=== PATIENT | female | born 1955 | race African-American/Black ===

== ENCOUNTER 2018-09-16 12:39 | Observation (INO) ==
[2018-09-16 14:48] LABS: Basophils # 0.1 10*3/uL (0.0-0.2); Basophils % 0.5 % (0.0-0.8); Eosinophils # 0.2 10*3/uL (0.0-0.87); Eosinophils % 1.6 % (0.00-10.9); Hematocrit 28.7 VOL% (35.7-47.0); Hemoglobin 8.6 GM/DL (12.0-16.0); Immature Granulocytes % 0.7 %; Immature Granulocytes Absolute 0.07 #; Lymphocytes # 0.9 10*3/uL (1.4-4.0); Lymphocytes % 9.5 % (21.3-54.2); Mean Corpuscular Volume 92.6 FL (87-102); Mean Platelet Volume 9.8 FL (9.6-12.0); Monocytes % 5.7 % (1.7-12.7); Platelet Count 233 T/CUMM (130-400); Red Cell Distribution Width 21.9 % (9.3-17.3); White Blood Count 9.5 T/CUMM (4-12)
[2018-09-16 15:04] LABS: Calcium 8.8 MG/DL (8.5-10.1); Osmolality,Calculated 313.4 MOS/KG (273-304)
[2018-09-16] MEDS ORDERED: ONDANSETRON 4 MG/2 ML VIAL IV PRN (16:26)
[2018-09-16] MEDS ORDERED: LACTULOSE 20 GM/30 ML UDCUP PO PRN (16:26)
[2018-09-16] MEDS ORDERED: SEVELAMER CARBONATE 800 MG TABLET PO SCH (17:00)
[2018-09-16 17:05] LABS: Thyroid Stimulating Hormone 1.57 uIU/ml (0.358-3.74)
[2018-09-16] MEDS: ISOSORBIDE DINITRATE 10 MG TABLET PO SCH (23:35)
[2018-09-16] MEDS: ZALEPLON 5 MG CAPSULE PO PRN (23:35)
[2018-09-16] MEDS: CARVEDILOL 12.5 MG TABLET PO SCH (23:35)
[2018-09-16] MEDS: hydrALAZINE 25 MG TABLET PO SCH (23:35)
[2018-09-16] MEDS: SEVELAMER CARBONATE 800 MG TABLET PO SCH (23:36)
[2018-09-17 05:01] LABS: Basophils # 0.1 10*3/uL (0.0-0.2); Basophils % 0.8 % (0.0-0.8); Eosinophils # 0.2 10*3/uL (0.0-0.87); Eosinophils % 2.7 % (0.00-10.9); Hematocrit 27.2 VOL% (35.7-47.0); Hemoglobin 8.2 GM/DL (12.0-16.0); Immature Granulocytes % 0.6 %; Immature Granulocytes Absolute 0.04 #; Lymphocytes # 0.8 10*3/uL (1.4-4.0); Lymphocytes % 10.9 % (21.3-54.2); Mean Corpuscular HGB Conc 30.1 GM/DL (32-36); Mean Corpuscular Volume 91.3 FL (87-102); Monocytes % 7.6 % (1.7-12.7); Neutrophils % 77.4 % (38.7-73.9); Platelet Count 203 T/CUMM (130-400); Red Blood Count 2.98 MC/CUMM (3.8-5.5); Red Cell Distribution Width 21.4 % (9.3-17.3); White Blood Count 7.1 T/CUMM (4-12)
[2018-09-17 05:20] LABS: Osmolality,Calculated 308.3 MOS/KG (273-304); Risk Ratio 2.01; VLDL CHOLESTEROL 9.2 MG/DL
[2018-09-17] MEDS: KETOROLAC 0.5% OPH SOLN 5 ML BOTTLE BOTH EYES SCH ×5 (09:24→20:23)
[2018-09-17] MEDS: DORZOLAMIDE/TIMOLOL OPH SOLN 10 ML BOTTLE BOTH EYES SCH ×3 (09:24→20:24)
[2018-09-17] MEDS: BRIMONIDINE 0.1% OPH SOLN 5 ML BOTTLE BOTH EYES SCH ×3 (09:24→20:23)
[2018-09-17] MEDS: SEVELAMER CARBONATE 800 MG TABLET PO SCH ×4 (09:27→16:49)
[2018-09-17] MEDS: MULTIVITAMIN (CENTRUM) TABLET PO SCH (09:28)
[2018-09-17] MEDS: amLODIPine 10 MG TABLET PO SCH (09:28)
[2018-09-17] MEDS: PANTOPRAZOLE 40 MG TABLET PO SCH (09:28)
[2018-09-17] MEDS: hydrALAZINE 25 MG TABLET PO SCH ×3 (09:28→20:20)
[2018-09-17] MEDS: ATORVASTATIN 10 MG TABLET PO SCH (09:28)
[2018-09-17] MEDS: LOSARTAN 50 MG TABLET PO SCH (09:28)
[2018-09-17] MEDS: CARVEDILOL 12.5 MG TABLET PO SCH ×2 (09:28→16:50)
[2018-09-17] MEDS: FLUTICASONE 50 MCG NASAL SPRAY 16 GM BOTTLE BOTH NARES SCH (09:28)
[2018-09-17] MEDS: ISOSORBIDE DINITRATE 10 MG TABLET PO SCH ×3 (09:28→20:20)
[2018-09-17] MEDS ORDERED: HEPARIN 1,000 UNIT/1 ML VIAL ONE (14:54)
[2018-09-17] MEDS: ACETAMINOPHEN 325 MG TABLET PO PRN (16:07)
[2018-09-17] MEDS: ZALEPLON 5 MG CAPSULE PO PRN (20:22)
[2018-09-18 05:44] LABS: Basophils # 0.1 10*3/uL (0.0-0.2); Basophils % 0.7 % (0.0-0.8); Eosinophils # 0.2 10*3/uL (0.0-0.87); Eosinophils % 2.7 % (0.00-10.9); Hemoglobin 8.6 GM/DL (12.0-16.0); Immature Granulocytes % 0.4 %; Immature Granulocytes Absolute 0.03 #; Lymphocytes # 0.7 10*3/uL (1.4-4.0); Mean Corpuscular HGB Conc 30.7 GM/DL (32-36); Mean Corpuscular Volume 90.9 FL (87-102); Mean Platelet Volume 9.6 FL (9.6-12.0); Monocytes % 7.5 % (1.7-12.7); Neutrophils % 78.7 % (38.7-73.9); Platelet Count 199 T/CUMM (130-400); Red Blood Count 3.08 MC/CUMM (3.8-5.5); Red Cell Distribution Width 21.3 % (9.3-17.3); White Blood Count 7.4 T/CUMM (4-12)
[2018-09-18 06:14] LABS: Calcium 8.8 MG/DL (8.5-10.1); Osmolality,Calculated 317.3 MOS/KG (273-304)
[2018-09-18] MEDS: DORZOLAMIDE/TIMOLOL OPH SOLN 10 ML BOTTLE BOTH EYES SCH (08:06)
[2018-09-18] MEDS: CARVEDILOL 12.5 MG TABLET PO SCH (08:06)
[2018-09-18] MEDS: SEVELAMER CARBONATE 800 MG TABLET PO SCH ×2 (08:06→14:40)
[2018-09-18] MEDS: hydrALAZINE 25 MG TABLET PO SCH ×2 (08:06→14:40)
[2018-09-18] MEDS: BRIMONIDINE 0.1% OPH SOLN 5 ML BOTTLE BOTH EYES SCH (08:06)
[2018-09-18] MEDS: KETOROLAC 0.5% OPH SOLN 5 ML BOTTLE BOTH EYES SCH ×2 (08:06→14:40)
[2018-09-18] MEDS: ISOSORBIDE DINITRATE 10 MG TABLET PO SCH ×2 (08:07→14:40)
[2018-09-18] MEDS ORDERED: ONDANSETRON 4 MG/2 ML VIAL ONE (08:13)
[2018-09-18 14:32] VITALS: BP 138/65
[2018-09-18] MEDS: PANTOPRAZOLE 40 MG TABLET PO SCH (14:40)
[2018-09-18] MEDS: LOSARTAN 50 MG TABLET PO SCH (14:40)
[2018-09-18] MEDS: amLODIPine 10 MG TABLET PO SCH (14:40)
[2018-09-18] MEDS: ATORVASTATIN 10 MG TABLET PO SCH (14:40)
[2018-09-18] MEDS: FLUTICASONE 50 MCG NASAL SPRAY 16 GM BOTTLE BOTH NARES SCH (14:43)
[2018-09-18] MEDS: ACETAMINOPHEN 325 MG TABLET PO PRN (14:44)
[2018-09-18] MEDS: MULTIVITAMIN (CENTRUM) TABLET PO SCH (14:55)
== END 2018-09-18 16:20 | disposition home or self-care (01) ==
LOC: N.ED 12:39 → N.EDINP 12:39 → N.5E 23:08
PROVIDERS: ADMIT Internal Medicine; ATTEND Internal Medicine

== ENCOUNTER 2021-01-16 19:07 | Observation (INO) ==
[2021-01-16 20:30] LABS: Basophils # 0.1 10*3/uL (0.0-0.2); Basophils % 0.9 % (0.0-0.8); Eosinophils # 0.1 10*3/uL (0.0-0.87); Hematocrit 43.4 VOL% (35.7-47.0); Hemoglobin 13.1 GM/DL (12.0-16.0); Immature Granulocytes % 4.6 %; Immature Granulocytes Absolute 0.31 #; Lymphocytes # 0.6 10*3/uL (1.4-4.0); Lymphocytes % 8.7 % (21.3-54.2); Mean Corpuscular HGB Conc 30.2 GM/DL (32-36); Mean Corpuscular Volume 95.8 FL (87-102); Mean Platelet Volume 10.4 FL (9.6-12.0); Monocytes % 13.4 % (1.7-12.7); Neutrophils % 71.4 % (38.7-73.9); Platelet Count 259 T/CUMM (130-400); Red Blood Count 4.53 MC/CUMM (3.8-5.5); Red Cell Distribution Width 14.7 % (9.3-17.3); White Blood Count 6.8 T/CUMM (4-12)
[2021-01-16 20:45] LABS: Alanine Aminotransferase 25 U/L (13-56); Albumin 3.9 G/DL (3.4-5.0); Alkaline Phosphatase 172 U/L (45-117); Aspartate Amino Transferase 17 U/L (0-37); Bilirubin,Total < 0.39 MG/DL (0.20-1.00); Blood Urea Nitrogen 31 MG/DL (7-18); Carbon Dioxide 25 MMOL/L (21-32); Estimated Glom Filtration Rate 61 ML/MIN; Glucose 116 MG/DL (74-106); Osmolality,Calculated 288.3 MOS/KG (273-304); Potassium 3.9 MMOL/L (3.5-5.1); Sodium 141 MMOL/L (136-145); Thyroid Stimulating Hormone 0.935 uIU/ml (0.358-3.74); Total Protein 6.9 G/DL (6.4-8.2)
[2021-01-16 20:49] LABS: Barbiturates Screen,Urine Negative (Negative); Benzodiazepines Screen,Urine Negative (Negative); Cannabinoid Screen,Urine Negative (Negative); Opiate Screen,Urine Negative (Negative); Phencyclidine Screen,Urine Negative (Negative)
[2021-01-16] MEDS ORDERED: MAGNESIUM SULF RIDER 1 GM/100 ML PREMIX IV STA (21:01)
[2021-01-16] MEDS ORDERED: GLUCAGON 1 MG VIAL IM PRN (22:06)
[2021-01-16] MEDS ORDERED: DEXTROSE 50% 25 GM/50 ML VIAL IV PRN (22:06)
[2021-01-16] MEDS ORDERED: ALUMINUM/MAGNES/SIMETH MAX STR 30 ML UDCUP PO PRN (22:07)
[2021-01-16] MEDS ORDERED: hydrALAZINE 20 MG/1 ML VIAL IV PRN (22:07)
[2021-01-16] MEDS ORDERED: DOCUSATE SODIUM 100 MG CAPSULE PO PRN (22:07)
[2021-01-16] MEDS ORDERED: POTASSIUM CHLORIDE RIDER 10 MEQ/100 ML PREMIX IV PRN (22:07)
[2021-01-16] MEDS ORDERED: ONDANSETRON 4 MG/2 ML VIAL IV PRN (22:07)
[2021-01-16] MEDS ORDERED: ACETAMINOPHEN 325 MG TABLET PO PRN (22:07)
[2021-01-16] MEDS ORDERED: MAGNESIUM SULF RIDER 4 GM/100 ML PREMIX IV PRN (22:07)
[2021-01-16] MEDS ORDERED: ASPIRIN CHEW 81 MG TABLET PO ONE (22:07)
[2021-01-16] MEDS ORDERED: SODIUM CHLORIDE 0.9% 1,000 ML IV SCH (22:30)
[2021-01-17 02:06] LABS: PT Patient Result 11.1 SECS (10.5-12.0); Partial Thromboplastin Time 26.8 SECS (23.8-32.1)
[2021-01-17 02:15] LABS: Calcium 9.5 MG/DL (8.5-10.1); Osmolality,Calculated 286.3 MOS/KG (273-304); Potassium 4.1 MMOL/L (3.5-5.1); Risk Ratio 1.98; VLDL Cholesterol 20.6 MG/DL
[2021-01-17 02:16] LABS: Basophils % 0.7 % (0.0-0.8); Eosinophils # 0.1 10*3/uL (0.0-0.87); Eosinophils % 1.3 % (0.00-10.9); Hematocrit 44.6 VOL% (35.7-47.0); Hemoglobin 13.3 GM/DL (12.0-16.0); Immature Granulocytes % 5.4 %; Lymphocytes # 0.6 10*3/uL (1.4-4.0); Lymphocytes % 10.1 % (21.3-54.2); Mean Corpuscular HGB Conc 29.8 GM/DL (32-36); Monocytes % 12.6 % (1.7-12.7); Neutrophils % 69.9 % (38.7-73.9); Platelet Count 235 T/CUMM (130-400); Red Cell Distribution Width 14.7 % (9.3-17.3); White Blood Count 5.6 T/CUMM (4-12)
[2021-01-17 03:18] LABS: Band Neutrophils 1 % (0-10); Eosinophils 1 % (0-10); Lymphocytes 11 % (20-55); Nucleated Red Blood Cells 1 (0-5); Platelet Estimate Normal; Segmented Neutrophils 79 % (50-85); Total Cells Counted 100
[2021-01-17 03:19] LABS: Ovalocytes Few; Stomatocytes Slight
[2021-01-17 03:20] LABS: Polychromasia Slight; Schistocytes Few
[2021-01-17] MEDS ORDERED: ZALEPLON 5 MG CAPSULE PO PRN (05:08)
[2021-01-17] MEDS ORDERED: amLODIPine 10 MG TABLET PO SCH (09:00)
[2021-01-17] MEDS ORDERED: ASPIRIN EC 325 MG TABLET PO SCH (09:00)
[2021-01-17] MEDS ORDERED: KETOROLAC 0.5% OPH SOLN 5 ML BOTTLE BOTH EYES SCH (09:00)
[2021-01-17] MEDS ORDERED: MAGNESIUM SULF RIDER 2 GM/50 ML PREMIX IV PRN (09:00)
[2021-01-17] MEDS ORDERED: MAGNESIUM OXIDE 400 MG TABLET PO SCH (09:00)
[2021-01-17] MEDS ORDERED: ENOXAPARIN 40 MG/0.4 ML SYRINGE SUBCUT SCH (09:00)
[2021-01-17] MEDS ORDERED: carvediloL 12.5 MG TABLET PO SCH (09:00)
[2021-01-17] MEDS ORDERED: MYCOPHENOLATE MOFETIL 250 MG CAPSULE PO SCH (09:00)
[2021-01-17] MEDS ORDERED: PANTOPRAZOLE 40 MG TABLET PO SCH (09:00)
[2021-01-17] MEDS ORDERED: TACROLIMUS 0.5 MG CAPSULE PO SCH ×2 (09:00→19:00)
[2021-01-17] MEDS ORDERED: POTASSIUM CHLORIDE RIDER 10 MEQ/100 ML PREMIX IV PRN (09:00)
[2021-01-17] MEDS ORDERED: predniSONE 5 MG TABLET PO SCH (09:00)
[2021-01-17 11:14] VITALS: BP 140/73
[2021-01-17] MEDS ORDERED: ATORVASTATIN 10 MG TABLET PO SCH (21:00)
[2021-01-17] MEDS ORDERED: APIXABAN 5 MG TABLET PO SCH (21:00)
[2021-01-18] MEDS ORDERED: TACROLIMUS 0.5 MG CAPSULE PO SCH (09:00)
[2021-01-18] MEDS ORDERED: ASPIRIN CHEW 81 MG TABLET PO SCH (09:00)
== END 2021-01-17 13:40 | disposition home or self-care (01) ==
LOC: N.EDINP 19:07 → N.ED 19:07 → SUATTDRO 22:06 → N.EDINP 01-17 01:04 → N.TELES 01-17 01:06
PROVIDERS: ADMIT Internal Medicine; ATTEND Internal Medicine

== ENCOUNTER 2022-04-02 07:40 | Inpatient (IN) ==
[2022-04-02] MEDS ORDERED: ACETAMINOPHEN 500 MG TABLET PO STA (08:03)
[2022-04-02 08:12] LABS: Hematocrit 26.3 VOL% (35.7-47.0); Hemoglobin 8.3 GM/DL (12.0-16.0); Lymphocytes # 0.1 10*3/uL (1.4-4.0); Lymphocytes % 55.6 % (21.3-54.2); Mean Corpuscular HGB Conc 31.6 GM/DL (32-36); Mean Corpuscular Volume 89.8 FL (87-102); Monocytes % 33.3 % (1.7-12.7); NRBC # 0.02 10*3/uL; Neutrophils % 11.1 % (38.7-73.9); Red Blood Count 2.93 MC/CUMM (3.8-5.5); Red Cell Distribution Width 17.4 % (9.3-17.3)
[2022-04-02 08:17] LABS: Platelet Count 27 T/CUMM (130-400); White Blood Count 0.1 T/CUMM (4-12)
[2022-04-02 08:25] LABS: Albumin 2.9 G/DL (3.4-5.0); Bilirubin,Total 0.7 MG/DL (0.20-1.00); Calcium 8.8 MG/DL (8.5-10.1); Potassium 3.9 MMOL/L (3.5-5.1); Total Protein 6.7 G/DL (6.4-8.2)
[2022-04-02 08:40] LABS: Lymphocytes 40 % (20-55)
[2022-04-02 08:41] LABS: Hypochromia Slight; Microcytosis Slight; Platelet Estimate Decreased; Total Cells Counted 100
[2022-04-02] MEDS ORDERED: VANCOMYCIN INJ 1,000 MG in SODIUM CHLORIDE 0.9% 250 ML IV STA (11:12)
[2022-04-02] MEDS ORDERED: PIPERACILLIN/TAZOBACTAM 3,375 MG in SODIUM CHLORIDE 0.9% 100 ML IV STA (11:13)
[2022-04-02] MEDS ORDERED: SODIUM CHLORIDE 0.9% 1,000 ML IV STA (11:19)
[2022-04-02] MEDS ORDERED: hydrALAZINE 20 MG/1 ML VIAL IV PRN (12:07)
[2022-04-02] MEDS ORDERED: ALBUTEROL/IPRATROPIUM 3 ML NEB RESP TX PRN (12:07)
[2022-04-02] MEDS ORDERED: guaiFENesin/DM ER 600-30 MG TABLET PO PRN (12:07)
[2022-04-02] MEDS ORDERED: ACETAMINOPHEN 325 MG TABLET PO PRN (12:07)
[2022-04-02] MEDS ORDERED: ONDANSETRON 4 MG/2 ML VIAL IV PRN (12:07)
[2022-04-02] MEDS ORDERED: DOCUSATE SODIUM 100 MG CAPSULE PO PRN (12:14)
[2022-04-02] MEDS ORDERED: PANTOPRAZOLE 40 MG TABLET PO SCH (12:30)
[2022-04-02] MEDS ORDERED: PIPERACILLIN/TAZOBACTAM 3,375 MG in SODIUM CHLORIDE 0.9% 100 ML IV SCH (14:30)
[2022-04-02 14:59] LABS: Hepatitis B Core IgM Quant 0.05 Index; Hepatitis B Surface Ag Quant < 0.10 Index; Hepatitis B Surface Ag Result Non-Reactive (NonReactive); Hepatitis C Virus Ab Quant < 0.02 Index; Hepatitis C Virus Ab Result Non-Reactive (NonReactive)
[2022-04-02] MEDS ORDERED: EPINEPHrine 1 MG/10 ML SYRINGE IV ONE (15:54)
[2022-04-02] MEDS ORDERED: SODIUM BICARBONATE 50 MEQ/50 ML SYRINGE IV ONE (15:55)
[2022-04-02] MEDS ORDERED: ATROPINE 1 MG/10 ML SYRINGE IV ONE (15:59)
[2022-04-02] MEDS ORDERED: CALCIUM CHLORIDE 1,000 MG/10 ML SYRINGE IV ONE (16:02)
[2022-04-02] MEDS ORDERED: EPINEPHrine 1 MG/ML VIAL ONE (16:19)
[2022-04-02] MEDS ORDERED: LACTATED RINGERS 1,000 ML IV ONE (16:32)
[2022-04-02] MEDS ORDERED: MIDAZOLAM 2 MG/2 ML VIAL ONE (16:34)
[2022-04-02] MEDS ORDERED: MIDAZOLAM 2 MG/2 ML VIAL IV ONE (16:35)
[2022-04-02 16:45] LABS: ABG Oxygen Saturation 98.5 % (95-100); ABG PCO2 40.9 MM HG (35-48); ABG PH 7.268 (7.35-7.45); ABG TCO2 16.8 MMOL/L (23-27)
[2022-04-02] MEDS: KETOROLAC 0.5% OPH SOLN 5 ML BOTTLE BOTH EYES SCH ×2 (17:00→21:49)
[2022-04-02] MEDS ORDERED: SODIUM BICARBONATE 50 MEQ/50 ML VIAL IV ONE (17:03)
[2022-04-02] MEDS: fentaNYL INJ 1,250 MCG in SODIUM CHLORIDE 0.9% 225 ML IV PRN (17:05)
[2022-04-02] MEDS: MIDAZOLAM DRIP 100 MG/100 ML PREMIX IV PRN (17:10)
[2022-04-02] MEDS: SODIUM CHLORIDE 0.9% 1,000 ML IV SCH (17:25)
[2022-04-02] MEDS ORDERED: LORazepam 2 MG/1 ML VIAL IV ONE ×2 (17:50→23:43)
[2022-04-02] MEDS ORDERED: LORazepam 2 MG/1 ML VIAL ONE (17:51)
[2022-04-02] MEDS ORDERED: [UNRECOGNIZED DRUG - OTHER] IV ONE (18:00)
[2022-04-02] MEDS ORDERED: FOSPHENYTOIN IV ONE (18:00)
[2022-04-02] MEDS ORDERED: SODIUM CHLORIDE IV ONE (18:00)
[2022-04-02 18:39] LABS: Protein,Urine 100 mg/dL (Negative); Urine Appearance Clear (Clear); Urine Color Straw (Yellow)
[2022-04-02 18:40] LABS: Bilirubin,Urine Negative (Negative); Blood, Urine Moderate mg/dL (Negative); Glucose,Urine (UA) Negative (Negative); Ketones,Urine Negative (Negative); Nitrite,Urine Negative (Negative); Urine Urobilinogen 0.2 eU/dL (<2.0)
[2022-04-02 18:46] LABS: RBC,Urine 7 /HPF (0-4)
[2022-04-02] MEDS ORDERED: CISATRACURIUM 10 MG/5 ML VIAL IV PRN (19:07)
[2022-04-02 19:23] LABS: High Sensitive Troponin I* 26.4 ng/L (0-54)
[2022-04-02 19:39] LABS: ABG Base Excess 0.6 MMOL/L (-2.5-2.5); ABG Oxygen Saturation 98.2 % (95-100); ABG PCO2 35.8 MM HG (35-48); ABG PH 7.441 (7.35-7.45); ABG TCO2 21.6 MMOL/L (23-27)
[2022-04-02 19:42] LABS: Hematocrit 21.9 VOL% (35.7-47.0); Hemoglobin 7.2 GM/DL (12.0-16.0); Mean Corpuscular HGB Conc 32.9 GM/DL (32-36); Mean Corpuscular Volume 87.6 FL (87-102); NRBC # 0.03 10*3/uL; Red Cell Distribution Width 17.1 % (9.3-17.3)
[2022-04-02 19:49] LABS: Lymphocytes % 37.5 % (21.3-54.2); Monocytes % 37.5 % (1.7-12.7)
[2022-04-02] MEDS: LINEZOLID INJ 600 MG/300 ML PREMIX IV SCH (19:49)
[2022-04-02 19:50] LABS: Platelet Count 23 T/CUMM (130-400); White Blood Count 0.1 T/CUMM (4-12)
[2022-04-02 19:58] LABS: INR 1.5; Partial Thromboplastin Time 41.4 SECS (23.7-32.9)
[2022-04-02] MEDS: FILGRASTIM-SNDZ 300 MCG/0.5 ML SYRINGE SUBCUT SCH (19:59)
[2022-04-02] MEDS: DORZOLAMIDE 2% OPH SOLN 10 ML BOTTLE BOTH EYES SCH ×2 (19:59→21:50)
[2022-04-02 20:00] LABS: Alanine Aminotransferase 215 U/L (13-56); Albumin 2.3 G/DL (3.4-5.0); Alkaline Phosphatase 214 U/L (45-117); Amylase 28 U/L (25-115); Aspartate Amino Transferase 258 U/L (0-37); Blood Urea Nitrogen 18 MG/DL (7-18); Calcium 8.7 MG/DL (8.5-10.1); Carbon Dioxide 25 MMOL/L (21-32); Chloride 107 MMOL/L (98-107); Glucose 183 MG/DL (74-106); Osmolality,Calculated 287.3 MOS/KG (273-304); Phosphorous 3.7 MG/DL (2.5-4.9); Potassium 3.6 MMOL/L (3.5-5.1); Sodium 141 MMOL/L (136-145); Total Protein 5.8 G/DL (6.4-8.2)
[2022-04-02] MEDS ORDERED: INSULIN REGULAR 100 UNIT/ML SUBCUT SCH (20:00)
[2022-04-02] MEDS: MEROPENEM 500 MG in SODIUM CHLORIDE 0.9% 100 ML IV SCH (20:16)
[2022-04-02] MEDS: HYDROCORTISONE 100 MG VIAL IV SCH (20:30)
[2022-04-02] MEDS ORDERED: MAGNESIUM SULF RIDER 2 GM/50 ML PREMIX IV ONE (20:33)
[2022-04-02 20:38] LABS: Anisocytosis 1+; Lymphocytes 65 % (20-55); Metamyelocytes 5 %; Myelocytes 5 %; Nucleated Red Blood Cells 3 /100 WBC (0-5); Platelet Estimate Decreased; Total Cells Counted 100
[2022-04-02] MEDS: LEVOFLOXACIN INJ 750 MG/150 ML PREMIX IV SCH (20:45)
[2022-04-02] MEDS ORDERED: carvediloL 3.125 MG TABLET PO SCH (21:00)
[2022-04-02] MEDS ORDERED: ATORVASTATIN 10 MG TABLET PO SCH (21:00)
[2022-04-02] MEDS: MAGNESIUM OXIDE 400 MG TABLET PO SCH (21:19)
[2022-04-02] MEDS: FLUTICASONE 50 MCG NASAL SPRAY 16 GM BOTTLE BOTH NARES SCH (21:45)
[2022-04-02] MEDS: TACROLIMUS 0.5 MG CAPSULE PO SCH (21:46)
[2022-04-02] MEDS: MICAFUNGIN 100 MG in SODIUM CHLORIDE 0.9% 100 ML IV SCH (22:22)
[2022-04-03] MEDS: INSULIN REGULAR 100 UNIT/ML IV SCH ×4 (00:04→12:36)
[2022-04-03] MEDS ORDERED: VANCOMYCIN INJ 1,500 MG in SODIUM CHLORIDE 0.9% 500 ML IV SCH (01:00)
[2022-04-03 01:44] LABS: ABG Base Excess -5.2 MMOL/L (-2.5-2.5); ABG HCO3 20.1 MMOL/L (20-26); ABG Oxygen Saturation 98.5 % (95-100); ABG PCO2 33.8 MM HG (35-48); ABG PH 7.369 (7.35-7.45); ABG TCO2 18.4 MMOL/L (23-27)
[2022-04-03 01:49] LABS: Hematocrit 22.9 VOL% (35.7-47.0); Hemoglobin 7.5 GM/DL (12.0-16.0); Lymphocytes % 27.3 % (21.3-54.2); Mean Corpuscular HGB Conc 32.8 GM/DL (32-36); Mean Corpuscular Volume 89.1 FL (87-102); Monocytes % 36.4 % (1.7-12.7); Neutrophils % 36.3 % (38.7-73.9); Red Blood Count 2.57 MC/CUMM (3.8-5.5); Red Cell Distribution Width 17.2 % (9.3-17.3)
[2022-04-03 01:55] LABS: Platelet Count 19 T/CUMM (130-400); White Blood Count 0.1 T/CUMM (4-12)
[2022-04-03 02:02] LABS: INR 1.7; PT Patient Result 18.5 SECS (10.1-12.1); Partial Thromboplastin Time 42.5 SECS (23.7-32.9)
[2022-04-03 02:07] LABS: Calcium 7.8 MG/DL (8.5-10.1); Osmolality,Calculated 290.4 MOS/KG (273-304); Potassium 2.9 MMOL/L (3.5-5.1)
[2022-04-03] MEDS: HYDROCORTISONE 100 MG VIAL IV SCH ×4 (02:07→20:35)
[2022-04-03] MEDS: SODIUM CHLORIDE 0.9% 1,000 ML IV SCH ×3 (02:09→17:16)
[2022-04-03] MEDS: POTASSIUM CHLORIDE RIDER 20 MEQ/100 ML PREMIX IV SCH ×2 (02:32→03:30)
[2022-04-03 02:36] LABS: Lymphocytes 60 % (20-55); Platelet Estimate Decreased; Total Cells Counted 100
[2022-04-03 02:37] LABS: Polychromasia Slight
[2022-04-03 02:38] LABS: Anisocytosis 1+
[2022-04-03] MEDS ORDERED: LORazepam 2 MG/1 ML VIAL IV ONE (03:31)
[2022-04-03] MEDS: MEROPENEM 500 MG in SODIUM CHLORIDE 0.9% 100 ML IV SCH ×3 (04:04→20:35)
[2022-04-03] MEDS: LINEZOLID INJ 600 MG/300 ML PREMIX IV SCH ×2 (05:21→18:25)
[2022-04-03] MEDS: fentaNYL INJ 1,250 MCG in SODIUM CHLORIDE 0.9% 225 ML IV PRN ×2 (05:47→20:42)
[2022-04-03] MEDS ORDERED: POTASSIUM CHLORIDE RIDER 20 MEQ/100 ML PREMIX IV ONE ×3 (05:53→19:20)
[2022-04-03 08:28] LABS: ABG Base Excess -5.3 MMOL/L (-2.5-2.5); ABG Oxygen Saturation 98.9 % (95-100); ABG PCO2 33.6 MM HG (35-48); ABG PH 7.368 (7.35-7.45); ABG TCO2 18.1 MMOL/L (23-27); Hematocrit 22.9 VOL% (35.7-47.0); Hemoglobin 7.5 GM/DL (12.0-16.0); Lymphocytes % 27.3 % (21.3-54.2); Mean Corpuscular HGB Conc 32.8 GM/DL (32-36); Mean Corpuscular Volume 88.8 FL (87-102); Monocytes % 36.4 % (1.7-12.7); NRBC # 0.02 10*3/uL; Neutrophils % 36.3 % (38.7-73.9); Red Blood Count 2.58 MC/CUMM (3.8-5.5); Red Cell Distribution Width 17.1 % (9.3-17.3)
[2022-04-03 08:34] LABS: White Blood Count 0.1 T/CUMM (4-12)
[2022-04-03 08:35] LABS: Platelet Count 23 T/CUMM (130-400)
[2022-04-03] MEDS: FLUTICASONE 50 MCG NASAL SPRAY 16 GM BOTTLE BOTH NARES SCH ×2 (08:44→21:08)
[2022-04-03 08:45] LABS: PT Patient Result 20.6 SECS (10.1-12.1)
[2022-04-03] MEDS: MAGNESIUM OXIDE 400 MG TABLET PO SCH ×2 (08:45→20:48)
[2022-04-03 08:48] LABS: Calcium 7.7 MG/DL (8.5-10.1); Osmolality,Calculated 292.5 MOS/KG (273-304); Potassium 3.8 MMOL/L (3.5-5.1)
[2022-04-03 08:59] LABS: Lymphocytes 60 % (20-55); Nucleated Red Blood Cells 1 /100 WBC (0-5); Platelet Estimate Decreased; Total Cells Counted 100
[2022-04-03 09:00] LABS: Hypochromia Slight; Microcytosis Slight
[2022-04-03] MEDS ORDERED: predniSONE 5 MG TABLET PO SCH (09:00)
[2022-04-03] MEDS ORDERED: AMIODARONE 200 MG TABLET PO SCH (09:00)
[2022-04-03] MEDS ORDERED: FLUCONAZOLE 200 MG TABLET PO SCH (09:00)
[2022-04-03] MEDS ORDERED: PANTOPRAZOLE 40 MG VIAL IV SCH (09:00)
[2022-04-03] MEDS ORDERED: amLODIPine 10 MG TABLET PO SCH (09:00)
[2022-04-03] MEDS: FILGRASTIM-SNDZ 300 MCG/0.5 ML SYRINGE SUBCUT SCH (09:50)
[2022-04-03] MEDS: TACROLIMUS 0.5 MG CAPSULE PO SCH (09:51)
[2022-04-03] MEDS: KETOROLAC 0.5% OPH SOLN 5 ML BOTTLE BOTH EYES SCH ×4 (09:52→20:52)
[2022-04-03] MEDS: DORZOLAMIDE 2% OPH SOLN 10 ML BOTTLE BOTH EYES SCH ×3 (09:53→20:53)
[2022-04-03] MEDS: ACYCLOVIR 200 MG CAPSULE PO SCH (10:40)
[2022-04-03] MEDS: CINACALCET 30 MG TABLET PO SCH (10:40)
[2022-04-03] MEDS ORDERED: MAGNESIUM SULF RIDER 1 GM/100 ML PREMIX IV ONE (11:00)
[2022-04-03] MEDS ORDERED: SODIUM CHLORIDE 0.9% 1,000 ML IV PRN (11:47)
[2022-04-03] MEDS ORDERED: PHENYTOIN 100 MG/2 ML VIAL IV SCH (13:00)
[2022-04-03] MEDS: PHENYTOIN INJ 100 MG in SODIUM CHLORIDE 0.9% 100 ML IV SCH ×2 (14:01→22:39)
[2022-04-03 14:19] LABS: Hematocrit 22.2 VOL% (35.7-47.0); Hemoglobin 7.2 GM/DL (12.0-16.0); Lymphocytes % 14.3 % (21.3-54.2); Mean Corpuscular HGB Conc 32.4 GM/DL (32-36); Mean Corpuscular Volume 88.1 FL (87-102); Monocytes # 0.1 10*3/uL (0.11-0.8); Monocytes % 35.7 % (1.7-12.7); NRBC # 0.02 10*3/uL; Red Blood Count 2.52 MC/CUMM (3.8-5.5); Red Cell Distribution Width 17.1 % (9.3-17.3)
[2022-04-03 14:20] LABS: ABG Base Excess -5.9 MMOL/L (-2.5-2.5); ABG HCO3 19.5 MMOL/L (20-26); ABG Oxygen Saturation 99.1 % (95-100); ABG PCO2 33.2 MM HG (35-48); ABG PH 7.362 (7.35-7.45); ABG TCO2 17.8 MMOL/L (23-27)
[2022-04-03 14:22] LABS: Platelet Count 19 T/CUMM (130-400); White Blood Count 0.1 T/CUMM (4-12)
[2022-04-03 14:33] LABS: INR 2.1; PT Patient Result 21.7 SECS (10.1-12.1)
[2022-04-03] MEDS: MIDAZOLAM DRIP 100 MG/100 ML PREMIX IV PRN (14:34)
[2022-04-03 14:39] LABS: Calcium 7.6 MG/DL (8.5-10.1); Osmolality,Calculated 291.5 MOS/KG (273-304); Potassium 3.4 MMOL/L (3.5-5.1)
[2022-04-03 14:51] LABS: Anisocytosis Slight; Burr Cells Few; Lymphocytes 45 % (20-55); Metamyelocytes 5 %; Myelocytes 10 %; Polychromasia Slight; Schistocytes Few; Total Cells Counted 100
[2022-04-03 14:52] LABS: Elliptocytes Few; Hypochromia Slight; Platelet Estimate Decreased
[2022-04-03] MEDS: INSULIN REGULAR DRIP 100 ML IV PRN (14:56)
[2022-04-03] MEDS ORDERED: PHENobarbital INJ 1,000 MG in SODIUM CHLORIDE 0.9% 100 ML IV ONE (16:48)
[2022-04-03] MEDS ORDERED: FUROSEMIDE 40 MG/4 ML VIAL IV ONE (18:20)
[2022-04-03] MEDS ORDERED: SODIUM CHLORIDE 0.9% 500 ML IV ONE (18:20)
[2022-04-03 20:28] LABS: ABG Base Excess -10.8 MMOL/L (-2.5-2.5); ABG HCO3 15.9 MMOL/L (20-26); ABG Oxygen Saturation 98.9 % (95-100); ABG PCO2 31.6 MM HG (35-48); ABG PH 7.284 (7.35-7.45); ABG TCO2 13.9 MMOL/L (23-27); Hematocrit 29.3 VOL% (35.7-47.0); Hemoglobin 9.6 GM/DL (12.0-16.0); Mean Corpuscular HGB Conc 32.8 GM/DL (32-36); Mean Corpuscular Volume 86.7 FL (87-102); Monocytes % 16.7 % (1.7-12.7); NRBC # 0.04 10*3/uL; Neutrophils % 58.3 % (38.7-73.9); Red Blood Count 3.38 MC/CUMM (3.8-5.5); Red Cell Distribution Width 16.9 % (9.3-17.3)
[2022-04-03 20:30] LABS: Platelet Count 18 T/CUMM (130-400); White Blood Count 0.1 T/CUMM (4-12)
[2022-04-03 20:37] LABS: INR 2.4; PT Patient Result 24.5 SECS (10.1-12.1); Partial Thromboplastin Time 51.5 SECS (23.7-32.9)
[2022-04-03 20:43] LABS: Calcium 7.4 MG/DL (8.5-10.1); Osmolality,Calculated 292.5 MOS/KG (273-304); Potassium 3.4 MMOL/L (3.5-5.1)
[2022-04-03] MEDS ORDERED: SODIUM BICARBONATE 50 MEQ/50 ML VIAL IV ONE (20:48)
[2022-04-03 20:53] LABS: Lymphocytes 45 % (20-55); Metamyelocytes 5 %; Myelocytes 3 %; Nucleated Red Blood Cells 1 /100 WBC (0-5); Total Cells Counted 100
[2022-04-03 20:54] LABS: Anisocytosis Slight; Burr Cells Few; Polychromasia Slight; Schistocytes Few
[2022-04-03 20:55] LABS: Elliptocytes Few; Platelet Estimate Decreased
[2022-04-03] MEDS: MICAFUNGIN 100 MG in SODIUM CHLORIDE 0.9% 100 ML IV SCH (21:18)
[2022-04-03 21:56] LABS: ABG Base Excess -7.3 MMOL/L (-2.5-2.5); ABG HCO3 18.5 MMOL/L (20-26); ABG Oxygen Saturation 98.9 % (95-100); ABG PCO2 34.2 MM HG (35-48); ABG PH 7.327 (7.35-7.45); ABG TCO2 16.4 MMOL/L (23-27)
[2022-04-03 22:14] LABS: Albumin 1.8 G/DL (3.4-5.0); Bilirubin,Direct 0.44 MG/DL (0.0-0.20); Bilirubin,Indirect 0.2 MG/DL (0.0-1.0); Bilirubin,Total 0.6 MG/DL (0.20-1.00); Total Protein 5.3 G/DL (6.4-8.2)
[2022-04-03] MEDS: LACTATED RINGERS 1,000 ML IV SCH (22:21)
[2022-04-03] MEDS ORDERED: LACTATED RINGERS 500 ML IV ONE (22:26)
[2022-04-03] MEDS: ALBUMIN 5% 12.5 GM/250 ML VIAL IV ONE ×2 (22:40→23:07)
[2022-04-04 00:25] LABS: ABG Base Excess -7.5 MMOL/L (-2.5-2.5); ABG HCO3 18.3 MMOL/L (20-26); ABG Oxygen Saturation 99.1 % (95-100); ABG PCO2 34.8 MM HG (35-48); ABG PH 7.319 (7.35-7.45); ABG TCO2 16.6 MMOL/L (23-27)
[2022-04-04] MEDS: INSULIN REGULAR DRIP 100 ML IV PRN (01:01)
[2022-04-04 02:08] LABS: ABG HCO3 19.5 MMOL/L (20-26); ABG PCO2 35.1 MM HG (35-48); ABG PH 7.343 (7.35-7.45); ABG TCO2 17.4 MMOL/L (23-27)
[2022-04-04] MEDS: HYDROCORTISONE 100 MG VIAL IV SCH ×4 (02:10→19:59)
[2022-04-04 02:11] LABS: Hematocrit 31.6 VOL% (35.7-47.0); Hemoglobin 10.6 GM/DL (12.0-16.0); Immature Granulocytes % 21.4 %; Immature Granulocytes Absolute 0.03 #; Lymphocytes % 14.3 % (21.3-54.2); Mean Corpuscular HGB Conc 33.5 GM/DL (32-36); Mean Corpuscular Volume 84.5 FL (87-102); Monocytes % 21.4 % (1.7-12.7); NRBC # 0.04 10*3/uL; Neutrophils % 42.9 % (38.7-73.9); Red Blood Count 3.74 MC/CUMM (3.8-5.5); Red Cell Distribution Width 17.2 % (9.3-17.3)
[2022-04-04 02:21] LABS: Platelet Count 14 T/CUMM (130-400); White Blood Count 0.1 T/CUMM (4-12)
[2022-04-04 02:25] LABS: Calcium 7.5 MG/DL (8.5-10.1); Potassium 3.2 MMOL/L (3.5-5.1)
[2022-04-04 02:28] LABS: INR 2.2; PT Patient Result 22.6 SECS (10.1-12.1); Partial Thromboplastin Time 47.8 SECS (23.7-32.9)
[2022-04-04 02:46] LABS: Nucleated Red Blood Cells 4 /100 WBC (0-5); Platelet Estimate Decreased; Total Cells Counted 100
[2022-04-04 02:47] LABS: Hypochromia Slight; Microcytosis 1+
[2022-04-04] MEDS: LACTATED RINGERS 1,000 ML IV SCH ×6 (03:20→22:08)
[2022-04-04] MEDS: MEROPENEM 500 MG in SODIUM CHLORIDE 0.9% 100 ML IV SCH ×3 (04:00→19:59)
[2022-04-04 04:18] LABS: Bilirubin,Total 0.8 MG/DL (0.20-1.00); Calcium 7.3 MG/DL (8.5-10.1); Osmolality,Calculated 289.8 MOS/KG (273-304); Potassium 3.2 MMOL/L (3.5-5.1); Total Protein 5.5 G/DL (6.4-8.2)
[2022-04-04] MEDS: LINEZOLID INJ 600 MG/300 ML PREMIX IV SCH ×2 (05:12→17:30)
[2022-04-04] MEDS: PHENYTOIN INJ 100 MG in SODIUM CHLORIDE 0.9% 100 ML IV SCH ×3 (05:44→21:17)
[2022-04-04] MEDS ORDERED: POTASSIUM PHOSPHATE 15 MMOL in SODIUM CHLORIDE 0.9% 100 ML IV ONE (07:50)
[2022-04-04] MEDS ORDERED: SODIUM CHLORIDE 0.9% 1,000 ML IV PRN (07:54)
[2022-04-04] MEDS: CINACALCET 30 MG TABLET PO SCH (08:40)
[2022-04-04] MEDS: FLUTICASONE 50 MCG NASAL SPRAY 16 GM BOTTLE BOTH NARES SCH ×2 (08:40→20:01)
[2022-04-04] MEDS: FILGRASTIM-SNDZ 480 MCG/0.8 ML SYRINGE SUBCUT SCH (08:40)
[2022-04-04] MEDS: MAGNESIUM OXIDE 400 MG TABLET PO SCH ×2 (08:40→21:02)
[2022-04-04] MEDS: FAMOTIDINE 20 MG/2 ML VIAL IV SCH ×2 (08:40→21:03)
[2022-04-04] MEDS: KETOROLAC 0.5% OPH SOLN 5 ML BOTTLE BOTH EYES SCH ×4 (08:40→20:01)
[2022-04-04] MEDS: DORZOLAMIDE 2% OPH SOLN 10 ML BOTTLE BOTH EYES SCH ×3 (08:40→20:01)
[2022-04-04] MEDS: ACYCLOVIR 200 MG CAPSULE PO SCH (08:40)
[2022-04-04 08:49] LABS: ABG HCO3 20.4 MMOL/L (20-26); ABG Oxygen Saturation 98.7 % (95-100); ABG PCO2 32.2 MM HG (35-48); ABG PH 7.379 (7.35-7.45)
[2022-04-04 08:52] LABS: Hematocrit 27.2 VOL% (35.7-47.0); Hemoglobin 9.3 GM/DL (12.0-16.0); Lymphocytes # 0.1 10*3/uL (1.4-4.0); Lymphocytes % 21.4 % (21.3-54.2); Mean Corpuscular HGB Conc 34.2 GM/DL (32-36); Monocytes # 0.1 10*3/uL (0.11-0.8); Monocytes % 28.6 % (1.7-12.7); Red Blood Count 3.24 MC/CUMM (3.8-5.5); Red Cell Distribution Width 17.8 % (9.3-17.3)
[2022-04-04 08:54] LABS: White Blood Count 0.3 T/CUMM (4-12)
[2022-04-04 08:55] LABS: Platelet Count 15 T/CUMM (130-400)
[2022-04-04 09:00] LABS: INR 1.8; PT Patient Result 18.6 SECS (10.1-12.1); Partial Thromboplastin Time 54.7 SECS (23.7-32.9)
[2022-04-04 09:15] LABS: Calcium 7.5 MG/DL (8.5-10.1); Osmolality,Calculated 288.3 MOS/KG (273-304); Potassium 3.7 MMOL/L (3.5-5.1)
[2022-04-04] MEDS ORDERED: INSULIN REGULAR 100 UNIT/ML IV ONE ×2 (09:38→10:37)
[2022-04-04 09:40] LABS: Lymphocytes 20 % (20-55); Platelet Estimate Decreased; Total Cells Counted 100
[2022-04-04 09:41] LABS: Hypochromia Slight; Microcytosis Slight
[2022-04-04] MEDS: MIDAZOLAM DRIP 100 MG/100 ML PREMIX IV PRN (10:05)
[2022-04-04] MEDS: fentaNYL INJ 1,250 MCG in SODIUM CHLORIDE 0.9% 225 ML IV PRN (10:13)
[2022-04-04 13:27] LABS: ABG Base Excess -4.7 MMOL/L (-2.5-2.5); ABG HCO3 20.4 MMOL/L (20-26); ABG Oxygen Saturation 94.5 % (95-100); ABG PCO2 32.2 MM HG (35-48); ABG PH 7.389 (7.35-7.45); ABG TCO2 17.8 MMOL/L (23-27)
[2022-04-04 13:34] LABS: Hematocrit 24.9 VOL% (35.7-47.0); Hemoglobin 8.5 GM/DL (12.0-16.0); Immature Granulocytes % 21.7 %; Immature Granulocytes Absolute 0.05 #; Lymphocytes % 8.7 % (21.3-54.2); Mean Corpuscular HGB Conc 34.1 GM/DL (32-36); Mean Corpuscular Volume 83.6 FL (87-102); Monocytes # 0.1 10*3/uL (0.11-0.8); Monocytes % 26.1 % (1.7-12.7); NRBC # 0.03 10*3/uL; Neutrophils % 43.5 % (38.7-73.9); Red Blood Count 2.98 MC/CUMM (3.8-5.5)
[2022-04-04 13:41] LABS: Platelet Count 33 T/CUMM (130-400); White Blood Count 0.2 T/CUMM (4-12)
[2022-04-04 13:44] LABS: INR 1.5; PT Patient Result 15.7 SECS (10.1-12.1); Partial Thromboplastin Time 54.3 SECS (23.7-32.9)
[2022-04-04 14:04] LABS: Bilirubin,Total 0.6 MG/DL (0.20-1.00); Calcium 6.9 MG/DL (8.5-10.1); Total Protein 4.4 G/DL (6.4-8.2)
[2022-04-04 14:57] LABS: Band Neutrophils 2 % (0-10); Lymphocytes 22 % (20-55); Metamyelocytes 2 %; Myelocytes 2 %; Nucleated Red Blood Cells 7 /100 WBC (0-5); Total Cells Counted 100; Toxic Granulation 1+
[2022-04-04 14:58] LABS: Burr Cells Few; Polychromasia Slight; Schistocytes Slight
[2022-04-04 14:59] LABS: Anisocytosis Slight; Platelet Estimate Decreased
[2022-04-04 16:13] LABS: ABG Base Excess -4.4 MMOL/L (-2.5-2.5); ABG HCO3 20.8 MMOL/L (20-26); ABG Oxygen Saturation 97.9 % (95-100); ABG PCO2 34.9 MM HG (35-48); ABG PH 7.369 (7.35-7.45); ABG TCO2 17.2 MMOL/L (23-27)
[2022-04-04] MEDS: INSULIN LISPRO 100 UNIT/ML SUBCUT SCH ×2 (16:34→20:45)
[2022-04-04] MEDS: LEVOFLOXACIN INJ 750 MG/150 ML PREMIX IV SCH (19:59)
[2022-04-04] MEDS: MICAFUNGIN 100 MG in SODIUM CHLORIDE 0.9% 100 ML IV SCH (21:02)
[2022-04-05] MEDS: INSULIN LISPRO 100 UNIT/ML SUBCUT SCH ×7 (00:02→23:56)
[2022-04-05] MEDS: HYDROCORTISONE 100 MG VIAL IV SCH ×4 (01:50→23:56)
[2022-04-05] MEDS: MEROPENEM 500 MG in SODIUM CHLORIDE 0.9% 100 ML IV SCH ×3 (03:34→19:45)
[2022-04-05 04:02] LABS: Arterial Bicarbonate iSTAT 21.8 MMOL/L (20-26); Arterial pH iSTAT 7.419 (7.35-7.45)
[2022-04-05 04:09] LABS: Hemoglobin 8.1 GM/DL (12.0-16.0); Immature Granulocytes Absolute 0.08 #; Lymphocytes # 0.1 10*3/uL (1.4-4.0); Lymphocytes % 10.6 % (21.3-54.2); Mean Corpuscular HGB Conc 32.4 GM/DL (32-36); Mean Corpuscular Volume 85.3 FL (87-102); Monocytes # 0.1 10*3/uL (0.11-0.8); Monocytes % 12.8 % (1.7-12.7); Neutrophils % 59.6 % (38.7-73.9); Red Blood Count 2.93 MC/CUMM (3.8-5.5); Red Cell Distribution Width 17.7 % (9.3-17.3)
[2022-04-05] MEDS ORDERED: DEXTROSE 50% 25 GM/50 ML SYRINGE IV ONE (04:13)
[2022-04-05 04:17] LABS: White Blood Count 0.5 T/CUMM (4-12)
[2022-04-05 04:18] LABS: Platelet Count 24 T/CUMM (130-400)
[2022-04-05] MEDS ORDERED: POTASSIUM CHLORIDE RIDER 10 MEQ/100 ML PREMIX IV PRN (04:19)
[2022-04-05 04:22] LABS: Albumin 1.8 G/DL (3.4-5.0); Bilirubin,Total 0.4 MG/DL (0.20-1.00); Calcium 7.5 MG/DL (8.5-10.1); Potassium 3.2 MMOL/L (3.5-5.1); Total Protein 5.5 G/DL (6.4-8.2)
[2022-04-05 04:27] LABS: Hypochromia Slight; Lymphocytes 20 % (20-55); Microcytosis Slight; Nucleated Red Blood Cells 2 /100 WBC (0-5); Platelet Estimate Decreased; Total Cells Counted 100
[2022-04-05] MEDS ORDERED: DEXTROSE 50% 25 GM/50 ML SYRINGE IV PRN (04:44)
[2022-04-05] MEDS ORDERED: MAGNESIUM SULF RIDER 4 GM/100 ML PREMIX IV PRN (04:45)
[2022-04-05] MEDS: POTASSIUM CHLORIDE RIDER 20 MEQ/100 ML PREMIX IV PRN ×3 (04:45→11:40)
[2022-04-05] MEDS: MAGNESIUM SULF RIDER 2 GM/50 ML PREMIX IV PRN ×2 (04:52→06:35)
[2022-04-05] MEDS: PHENYTOIN INJ 100 MG in SODIUM CHLORIDE 0.9% 100 ML IV SCH ×2 (05:26→17:15)
[2022-04-05] MEDS: LINEZOLID INJ 600 MG/300 ML PREMIX IV SCH ×2 (05:32→18:00)
[2022-04-05] MEDS: LACTATED RINGERS 1,000 ML IV SCH ×3 (05:32→19:53)
[2022-04-05] MEDS: DORZOLAMIDE 2% OPH SOLN 10 ML BOTTLE BOTH EYES SCH ×3 (08:47→20:10)
[2022-04-05] MEDS: FILGRASTIM-SNDZ 480 MCG/0.8 ML SYRINGE SUBCUT SCH (08:47)
[2022-04-05] MEDS: FLUTICASONE 50 MCG NASAL SPRAY 16 GM BOTTLE BOTH NARES SCH ×2 (08:47→20:09)
[2022-04-05] MEDS: FAMOTIDINE 20 MG/2 ML VIAL IV SCH ×2 (08:47→20:51)
[2022-04-05] MEDS: KETOROLAC 0.5% OPH SOLN 5 ML BOTTLE BOTH EYES SCH ×4 (08:47→20:09)
[2022-04-05] MEDS: CINACALCET 30 MG TABLET PO SCH (08:47)
[2022-04-05] MEDS: ACYCLOVIR 200 MG CAPSULE PO SCH (08:47)
[2022-04-05] MEDS: MAGNESIUM OXIDE 400 MG TABLET PO SCH ×2 (08:53→20:51)
[2022-04-05] MEDS: LEVOFLOXACIN INJ 750 MG/150 ML PREMIX IV SCH (09:20)
[2022-04-05 16:01] LABS: Myeloperoxidase Antibody < 0.2 U
[2022-04-05] MEDS: MICAFUNGIN 100 MG in SODIUM CHLORIDE 0.9% 100 ML IV SCH (20:51)
[2022-04-06] MEDS: MEROPENEM 500 MG in SODIUM CHLORIDE 0.9% 100 ML IV SCH ×3 (04:00→20:38)
[2022-04-06 04:03] LABS: Hematocrit 22.9 VOL% (35.7-47.0); Hemoglobin 7.5 GM/DL (12.0-16.0); Immature Granulocytes % 62.6 %; Immature Granulocytes Absolute 0.77 #; Lymphocytes # 0.1 10*3/uL (1.4-4.0); Lymphocytes % 4.1 % (21.3-54.2); Mean Corpuscular HGB Conc 32.8 GM/DL (32-36); Mean Corpuscular Volume 86.4 FL (87-102); Monocytes # 0.2 10*3/uL (0.11-0.8); Monocytes % 13.8 % (1.7-12.7); NRBC # 0.04 10*3/uL; Neutrophils % 19.5 % (38.7-73.9); Red Blood Count 2.65 MC/CUMM (3.8-5.5); Red Cell Distribution Width 17.7 % (9.3-17.3); White Blood Count 1.2 T/CUMM (4-12)
[2022-04-06 04:05] LABS: Platelet Count 17 T/CUMM (130-400)
[2022-04-06 04:14] LABS: Arterial Base Excess iSTAT -2 MMOL/L (-2.5-2.5); Arterial O2 Saturation iSTAT 98 % (95-100); Arterial PCO2 iSTAT 37 MM HG (35-48); Arterial PO2 iSTAT 104 MM HG (80-95); Arterial Total CO2 iSTAT 24 MMO/L (23-27); Arterial pH iSTAT 7.401 (7.35-7.45)
[2022-04-06] MEDS: INSULIN LISPRO 100 UNIT/ML SUBCUT SCH ×5 (04:16→20:39)
[2022-04-06 04:26] LABS: Band Neutrophils 7 % (0-10); Lymphocytes 6 % (20-55); Microcytosis 1+; Nucleated Red Blood Cells 3 /100 WBC (0-5); Total Cells Counted 100
[2022-04-06 04:27] LABS: Alanine Aminotransferase 48 U/L (13-56); Albumin 1.6 G/DL (3.4-5.0); Alkaline Phosphatase 100 U/L (45-117); Aspartate Amino Transferase 51 U/L (0-37); Bilirubin,Total < 0.39 MG/DL (0.20-1.00); Blood Urea Nitrogen 25 MG/DL (7-18); Calcium 8.1 MG/DL (8.5-10.1); Carbon Dioxide 25 MMOL/L (21-32); Chloride 108 MMOL/L (98-107); Glucose 147 MG/DL (74-106); Hypochromia Slight; Osmolality,Calculated 283.5 MOS/KG (273-304); Platelet Estimate Decreased; Potassium 3.7 MMOL/L (3.5-5.1); Sodium 139 MMOL/L (136-145); Tear Drop Cells Slight; Total Protein 5.4 G/DL (6.4-8.2)
[2022-04-06] MEDS: POTASSIUM CHLORIDE RIDER 20 MEQ/100 ML PREMIX IV PRN (04:41)
[2022-04-06] MEDS: PHENYTOIN INJ 100 MG in SODIUM CHLORIDE 0.9% 100 ML IV SCH ×2 (05:17→17:20)
[2022-04-06] MEDS: LINEZOLID INJ 600 MG/300 ML PREMIX IV SCH ×2 (06:03→17:50)
[2022-04-06] MEDS: LACTATED RINGERS 1,000 ML IV SCH ×2 (06:04→08:30)
[2022-04-06] MEDS ORDERED: ERGOCALCIFEROL 50,000 UNIT CAPSULE PO SCH (09:00)
[2022-04-06] MEDS: FLUTICASONE 50 MCG NASAL SPRAY 16 GM BOTTLE BOTH NARES SCH ×2 (09:00→20:39)
[2022-04-06] MEDS: LEVOFLOXACIN INJ 750 MG/150 ML PREMIX IV SCH (09:35)
[2022-04-06] MEDS: FAMOTIDINE 20 MG/2 ML VIAL IV SCH ×2 (09:40→20:37)
[2022-04-06] MEDS: MAGNESIUM OXIDE 400 MG TABLET PO SCH ×2 (09:40→20:40)
[2022-04-06] MEDS: ACYCLOVIR 200 MG CAPSULE PO SCH (09:40)
[2022-04-06] MEDS: CINACALCET 30 MG TABLET PO SCH (09:40)
[2022-04-06] MEDS: HYDROCORTISONE 100 MG VIAL IV SCH (09:40)
[2022-04-06] MEDS: FILGRASTIM-SNDZ 480 MCG/0.8 ML SYRINGE SUBCUT SCH (09:45)
[2022-04-06] MEDS: KETOROLAC 0.5% OPH SOLN 5 ML BOTTLE BOTH EYES SCH ×4 (09:45→20:39)
[2022-04-06] MEDS: DORZOLAMIDE 2% OPH SOLN 10 ML BOTTLE BOTH EYES SCH ×3 (09:50→20:38)
[2022-04-06] MEDS: DEXAMETHASONE 4 MG/1 ML VIAL IV SCH ×2 (14:55→20:38)
[2022-04-06] MEDS: SODIUM CHLORIDE 3% INJ 500 ML IV SCH (15:35)
[2022-04-06] MEDS: MICAFUNGIN 100 MG in SODIUM CHLORIDE 0.9% 100 ML IV SCH (21:35)
[2022-04-07] MEDS: INSULIN LISPRO 100 UNIT/ML SUBCUT SCH ×6 (00:43→20:09)
[2022-04-07 02:58] LABS: Arterial Base Excess iSTAT -2 MMOL/L (-2.5-2.5); Arterial Bicarbonate iSTAT 22.9 MMOL/L (20-26); Arterial O2 Saturation iSTAT 97 % (95-100); Arterial PCO2 iSTAT 38 MM HG (35-48); Arterial PO2 iSTAT 89 MM HG (80-95); Arterial Total CO2 iSTAT 24 MMO/L (23-27); Arterial pH iSTAT 7.393 (7.35-7.45)
[2022-04-07] MEDS: DEXAMETHASONE 4 MG/1 ML VIAL IV SCH ×4 (03:49→20:20)
[2022-04-07] MEDS: MEROPENEM 500 MG in SODIUM CHLORIDE 0.9% 100 ML IV SCH ×3 (03:54→20:12)
[2022-04-07 04:41] LABS: Basophils % 0.8 % (0.0-0.8); Hematocrit 24.6 VOL% (35.7-47.0); Hemoglobin 7.8 GM/DL (12.0-16.0); Immature Granulocytes % 14.7 %; Immature Granulocytes Absolute 0.56 #; Lymphocytes # 0.1 10*3/uL (1.4-4.0); Lymphocytes % 1.3 % (21.3-54.2); Mean Corpuscular HGB Conc 31.7 GM/DL (32-36); Mean Corpuscular Volume 89.1 FL (87-102); Monocytes # 0.4 10*3/uL (0.11-0.8); Monocytes % 10.8 % (1.7-12.7); NRBC # 0.06 10*3/uL; Neutrophils % 72.4 % (38.7-73.9); Red Blood Count 2.76 MC/CUMM (3.8-5.5); Red Cell Distribution Width 17.8 % (9.3-17.3); White Blood Count 3.8 T/CUMM (4-12)
[2022-04-07 04:45] LABS: Platelet Count 19 T/CUMM (130-400)
[2022-04-07 05:09] LABS: Alanine Aminotransferase 47 U/L (13-56); Albumin 1.6 G/DL (3.4-5.0); Alkaline Phosphatase 118 U/L (45-117); Aspartate Amino Transferase 50 U/L (0-37); Bilirubin,Total < 0.39 MG/DL (0.20-1.00); Blood Urea Nitrogen 31 MG/DL (7-18); Calcium 8.4 MG/DL (8.5-10.1); Carbon Dioxide 25 MMOL/L (21-32); Chloride 112 MMOL/L (98-107); Glucose 129 MG/DL (74-106); Osmolality,Calculated 294.8 MOS/KG (273-304); Potassium 3.7 MMOL/L (3.5-5.1); Sodium 144 MMOL/L (136-145); Total Protein 5.7 G/DL (6.4-8.2)
[2022-04-07 05:11] LABS: Band Neutrophils 4 % (0-10); Hypochromia Slight; Lymphocytes 1 % (20-55); Microcytosis 1+; Nucleated Red Blood Cells 2 /100 WBC (0-5); Ovalocytes Slight; Target Cells Slight; Total Cells Counted 100
[2022-04-07 05:12] LABS: Platelet Estimate Decreased
[2022-04-07] MEDS: LINEZOLID INJ 600 MG/300 ML PREMIX IV SCH ×2 (07:30→17:30)
[2022-04-07] MEDS: PHENYTOIN INJ 100 MG in SODIUM CHLORIDE 0.9% 100 ML IV SCH ×2 (07:35→17:30)
[2022-04-07] MEDS: FAMOTIDINE 20 MG/2 ML VIAL IV SCH ×2 (07:50→20:20)
[2022-04-07] MEDS: KETOROLAC 0.5% OPH SOLN 5 ML BOTTLE BOTH EYES SCH ×4 (07:55→20:26)
[2022-04-07] MEDS: ACYCLOVIR 200 MG CAPSULE PO SCH (08:00)
[2022-04-07] MEDS: CINACALCET 30 MG TABLET PO SCH (08:00)
[2022-04-07] MEDS: MAGNESIUM OXIDE 400 MG TABLET PO SCH ×2 (08:00→20:28)
[2022-04-07] MEDS: DORZOLAMIDE 2% OPH SOLN 10 ML BOTTLE BOTH EYES SCH ×3 (08:05→20:25)
[2022-04-07] MEDS: FLUTICASONE 50 MCG NASAL SPRAY 16 GM BOTTLE BOTH NARES SCH ×2 (08:05→20:26)
[2022-04-07] MEDS: FILGRASTIM-SNDZ 480 MCG/0.8 ML SYRINGE SUBCUT SCH (08:05)
[2022-04-07] MEDS: LEVOFLOXACIN INJ 750 MG/150 ML PREMIX IV SCH (09:00)
[2022-04-07] MEDS: SODIUM CHLORIDE 3% INJ 500 ML IV SCH (09:10)
[2022-04-07] MEDS ORDERED: SODIUM CHLORIDE 3% INJ 500 ML IV SCH (09:40)
[2022-04-07 17:04] LABS: Calcium 8.6 MG/DL (8.5-10.1); Osmolality,Calculated 295.7 MOS/KG (273-304); Potassium 3.6 MMOL/L (3.5-5.1)
[2022-04-07 19:22] VITALS: BP 140/86
[2022-04-07] MEDS: MICAFUNGIN 100 MG in SODIUM CHLORIDE 0.9% 100 ML IV SCH (20:57)
[2022-04-07] MEDS ORDERED: MENTHOL/ZINC OXIDE OINT 71 GM JAR TOP SCH (21:00)
[2022-04-08] MEDS: INSULIN LISPRO 100 UNIT/ML SUBCUT SCH (01:11)
== END 2022-04-08 00:35 | disposition hospice, home (50) | DRG 870 ==
LOC: N.ED 07:40 → SUATTDRO 12:07 → N.TELES 12:07 → N.ICU 16:28
PROVIDERS: ADMIT Family Medicine; ATTEND Family Medicine